=== PATIENT | female | born 1955 | race Caucasian/White ===

== ENCOUNTER 2019-02-15 22:44 | Emergency (ER) | payer OTHER ==
[~2019-02-15] VITALS: Ht 165.1 cm; Wt 105.2 kg
[~2019-02-15 22:44] MED LIST: DIFLUCAN150 MG PO; LEVOFLOXACIN500 MG PO; MED FOR BP
[2019-02-15 23:04] LABS: BILIRUBIN NEGATIVE (NEGATIVE); BLOOD 3+ (NEGATIVE); CLARITY CLOUDY (CLEAR); COLOR YELLOW (YELLOW); GLUCOSE NEGATIVE (NEGATIVE); KETONE NEGATIVE (NEGATIVE); LEUKO ESTERASE 3+ (NEGATIVE); NITRITE POSITIVE (NEGATIVE)
[2019-02-15 23:13] LABS: WBC TNTC wbc/hpf (0-5)
[2019-02-15] MEDS ORDERED: ZOFRAN4 MG PO (23:20)
[2019-02-15] MEDS ORDERED: SEPTDS PO (23:20)
[2019-02-15] MEDS ORDERED: PYRIDIUM100 MG PO (23:20)
[2019-02-16 00:13] LABS: BASO % 0.2 % (0.0-1.0); EOS % 0.5 % (1.0-4.0); HEMATOCRIT 35.8 % (37.0-47.0); HEMOGLOBIN 11.5 g/dl (12.0-16.0); LYMPH # 0.6 10*3/uL (1.3-4.4); LYMPH % 7.6 % (27.0-41.0); MEAN CELL VOLUME 88.8 fl (81.0-99.0); MEAN CORPUSCULAR HGB 28.5 pg (27.0-31.0); MEAN CORPUSCULAR HGB CONC 32.1 g/dl (33.0-37.0); MEAN PLATELET VOLUME 9.8 fl (9.6-12.3); MONO # 0.3 10*3/uL (0.1-1.0); MONO % 3.4 % (3.0-9.0); NEUT # 7.5 10*3/uL (2.3-7.9); NEUT % 87.9 % (47.0-73.0); PLATELET COUNT AUTOMATED 166 10*3/uL (130-400); RED BLOOD COUNT 4.03 10*6/uL (4.10-5.10); RED CELL DISTRI WIDTH 13.8 % (0-14.5); WHITE BLOOD COUNT 8.5 10*3/uL (4.8-10.8)
[2019-02-16 00:20] LABS: ALBUMIN 3.2 gm/dl (3.1-4.5); ALKALINE PHOSPHATASE 123 U/L (45-117); BUN 18 mg/dl (7-24); CHLORIDE 101 mmol/L (98-107); CREATININE 1.03 mg/dL (0.55-1.02); LIPASE 132 U/L (73-393); POTASSIUM 3.5 mmol/L (3.5-5.1); SGOT/AST 20 IU/L (3-35); SGPT/ALT 22 U/L (12-78); SODIUM 136 mmol/L (136-145); TOTAL PROTEIN 6.9 gm/dL (6.4-8.2)
== END 2019-02-15 23:30 | disposition home or self-care (01) ==
LOC: ED 22:44
PROVIDERS: Physician Assistant
DX: N39.0 Urinary tract infection, site not specified (principal); R11.2 Nausea with vomiting, unspecified

== ENCOUNTER 2021-02-18 12:58 | Emergency (ER) | payer MEDICARE ==
[~2021-02-18] VITALS: Ht 165.1 cm; Wt 81.6 kg
[~2021-02-18 12:58] MED LIST changes: +PYRIDIUM100 MG PO; +SEPTDS PO; +ZOFRAN4 MG PO
== END 2021-02-18 15:43 | disposition home or self-care (01) ==
LOC: ED 12:58
DX: S82.65XA Nondisplaced fracture of lateral malleolus of left fibula, initial encounter for closed fracture (principal); W10.8XXA Fall (on) (from) other stairs and steps, initial encounter; Y93.89 Activity, other specified; Y92.89 Other specified places as the place of occurrence of the external cause; Y99.9 Unspecified external cause status